=== PATIENT | female | born 1990 | race Caucasian/White ===

== ENCOUNTER → 2023-05-21 15:27 | Outpatient (REF) | payer OTHER, SELFPAY | LOC: HWRAD 15:27 | PROVIDERS: ATTENDING PHYSICIAN Physician Assistant Medical; FAMILY PHYSICIAN Physician Assistant Medical | DX: Z20.828 Contact with and (suspected) exposure to other viral communicable diseases (principal) | CPT/HCPCS: 71046 ==

== ENCOUNTER 2024-09-12 21:12 | Emergency (ER) | payer OTHER, SELFPAY ==
[2024-09-12 21:15] VITALS: BP 128/93
[2024-09-12 23:50] VITALS: BP 124/83
--- NOTE | 2024-09-13 00:58 | ED.GENMED ---
History of Present Illness
General
Chief Complaint: Skin Surface Trauma
Source: patient
Exam Limitations: none
Time Seen by Provider: 09/13/24 00:24
Nursing documentation reviewed up to this point in time: agreed with
History of Present Illness
History of Present Illness:
34 y/o F R hand dominant, h/o factor v leiden
here with L index finger laceration while slicing bread a few hours ago
bleeding was difficult to control
no thinners
tetanus 2021
no numbness/tingling/weakness
Past History
Past History
ED Past Medical History: Other (Factor V Leiden)
ED Past Surgical History: (2018) and Gynecological (D&C after miscarriage 02/2021)
Social History
Tobacco: Non-smoker
Alcohol: None
Personal:
Living: with family
Employment: Employed (Works from home)
Review of Systems
Review of Systems
Allergies reviewed?: Yes
All Other Systems: Not applicable
Phy Exam
Physical Exam
Physical Exam:
GENERAL: Alert , in no apparent distress, comfortable at rest
HEAD: NCAT
CV: cap refill intact
NEUROLOGICAL: Alert and oriented, no focal neuro deficits, , 5/5 strength, sensation intact, ambulation slight limp right leg
SKIN: Warm and dry, arc shaped flap laceration to L index finger radial aspect involving a small corner of the plate; it is not fully avulsed
MUSCULOSKELETAL: L index finger laceration
bleeding well controlled
cap refill intact
full ROM intact
sensation intact
PSYCH: Normal and appropriate interaction.
Course
Vital Signs
Initial and Last Documented VS:
Initial Vital Signs
Temp Pulse Resp BP Pulse Ox
36.8 C 84 16 128/93 98
09/12/24 21:15 09/12/24 21:15 09/12/24 21:15 09/12/24 21:15 09/12/24 21:15
Last Documented Vital Signs
Temp Pulse Resp BP Pulse Ox
36.8 C 81 16 124/83 100
09/12/24 21:15 09/12/24 23:50 09/12/24 23:50 09/12/24 23:50 09/12/24 23:50
MDM/Problems Addressed
Differential Diagnosis Includes:
laceration, avulsion
MDM/Problems Addressed:
34 y/o F R hand dominant
L index fingertip superficial flap aceration
already nearly closed
bleeding controlled
irrigated
dressed with glue and sterristrips
covered with bandaid
*Pulse Oximetry
SaO2: 100
Oxygen Mode of Delivery: Room air
Patient hypoxic: no (98)
*Critical Care Note
Total Time (30-74mins, 75-104mins- exclusive of procedures): Not Applicable
ED Attending Note
-
Portions of this chart may have been created with voice recognition software.� Occasional wrong word or��sound alike� substitutions may have occurred due to the inherent limitations of voice recognition software.
Discharge Plan
Departure
Patient Disposition: Home (Routine Discharge)
Date of Disposition: 09/13/24
Time of Disposition: 00:54
Patient with high blood pressure during this ER visit?: No
Condition: Fair
Covid-19: Not Applicable
Discharge Problem:
Finger laceration
Instructions: Laceration Repair With Glue (DC)
Referrals:
Kalpana Barker PA [Family Provider, Family Practice]
Activity Restrictions/Additional Instructions:
KEEP THE WOUND CLEAN AND DRY FOR 48 HOURS
you can change the bandaid but try to keep it dry for 2 days
after that you can get the finger wet and the sterristrips will peel up and fall off in 3-5 days
return for any concerns.
Interventions
Interventions:
*Risk Screen - Suicide Last Done: 09/12/24 21:15
*General Assessment Last Done: 09/12/24 21:15
*Neglect/Abuse Screening Last Done: 09/12/24 23:49
*ED- Fall Risk Assessment Last Done: 09/12/24 21:15
*ED COVID-19 Vaccine History Last Done: 09/12/24 23:49
ED-Skin Assessment Last Done: 09/12/24 23:49
Discharge Date and Time
Print Language: BENINESE
== END 2024-09-13 01:14 | disposition home or self-care (01) ==
LOC: EMR 21:12
PROVIDERS: EMERGENCY PHYSICIAN Emergency Medicine; FAMILY PHYSICIAN Physician Assistant Medical
DX: S61.211A Laceration without foreign body of left index finger without damage to nail, initial encounter (principal); W27.4XXA Contact with kitchen utensil, initial encounter; D68.51 Activated protein C resistance
CPT/HCPCS: 12001; 99282